=== PATIENT | male | born 1950 | race Two or more races ===

== ENCOUNTER 2022-08-03 16:02 | Outpatient (REF) | payer MEDICARE, OTHER, SELFPAY ==
--- NOTE | ~2022-08-03 | XR_ITS ---
EXAMINATION: XR CLAVICLE, RIGHT CLINICAL INFORMATION: Bony hypertrophy. COMPARISON: None TECHNIQUE: Straight AP and cephalad angulated AP views of the right clavicle. FINDINGS: Bony alignment and mineralization are normal. The glenohumeral joint is intact. The acromioclavicular and coracoclavicular intervals are normal. There is mild osteoarthritic change of the right acromioclavicular joint, with small well-corticated subarticular cysts seen of the distal left clavicle. No fracture or dislocation is seen. There is no foreign body. No right pneumothorax is seen. XR/XR clavicle RT IMPRESSION: There is mild degenerative change of the right acromioclavicular joint. No fracture or dislocation is seen.
== END 2022-08-03 16:03 | disposition home or self-care (01) ==
LOC: HO.XRAY 16:02
PROVIDERS: PCP Internal Medicine; Visit Provider Psychiatry & Neurology Neurology
DX: M89.311 Hypertrophy of bone, right shoulder (principal)
CPT/HCPCS: 73000

== ENCOUNTER 2022-08-20 11:06 | Outpatient (REF) | payer MEDICARE, OTHER, SELFPAY ==
--- NOTE | ~2022-08-20 | MR_ITS ---
EXAMINATION: MR LUMBAR SPINE WITHOUT CONTRAST CLINICAL INFORMATION: Dorsalgia, unspecified COMPARISON: None TECHNIQUE: MRI of the lumbar spine was obtained using routine sequences without contrast. FINDINGS: There is transitional lumbosacral anatomy. Last fully formed disc is considered L5-S1 as seen on series 6 image 25/34. There is a hypoplastic disc at S1-S2 seen on series 6 image 31/34. The lumbar vertebral bodies maintain their is chronic compression deformity at L3 with mild height loss but no marrow edema. Additional inferior endplate depression is seen at L4 compatible with chronic fracture. The sagittal alignment appears preserved. There is moderate degree of dextroscoliotic curvature in the lumbar spine. The distal spinal cord appears normal. The conus medullaris terminates normally at the L1 level. A small filar lipoma is noted extending inferiorly from the L3 level. The extraspinal soft tissues are within normal limits. SPINAL LEVELS: L1-L2: Mild disc bulging with ligament flavum infolding, facet arthropathy, and epidural lipomatosis resulting mild spinal canal stenosis. No neural foraminal stenosis. L2-L3: Disc bulging with central annular fissuring, ligament flavum infolding, facet arthropathy, and epidural lipomatosis resulting in moderate spinal canal stenosis and subarticular stenosis. Moderate to severe left and moderate right neural foraminal stenosis. L3-L4: Disc bulging, ligament flavum infolding, and severe facet arthropathy resulting in severe spinal canal stenosis with compression of the thecal sac and traversing nerve roots. The cauda equina nerve roots appear buckled superior to this level. Left foraminal extrusion resulting in severe left neural foraminal stenosis with significant compression of the exiting left L3 nerve root. Moderate to severe right neural foraminal stenosis with compression of the exiting right L3 nerve root. L4-L5: Bulging with central protrusion, ligamentum flavum infolding, and severe facet arthropathy resulting in severe spinal canal stenosis with compression of the thecal sac and traversing nerve roots. Left foraminal extrusion results in severe left neural foraminal stenosis with significant compression of the exiting left L4 nerve root. Severe right neural foraminal stenosis with compression of the exiting right L4 nerve root. L5-S1: Disc bulging with central protrusion and severe facet arthropathy resulting in bilateral subarticular stenosis with compression of the traversing S1 nerve roots. Severe bilateral neural foraminal stenosis with compression of both exiting L5 nerve root. S1-S2: Hypoplastic disc with severe right and moderate left facet arthropathy. No spinal canal stenosis. Transitional anatomy with osteophytic ridging appears to compress the extraforaminal right S1 nerve root. MR/MR lumbar spine wo con IMPRESSION: Transitional lumbosacral anatomy with last fully formed disc considered L5-S1 and hypoplastic disc seen at S1-S2. Please confirm all numbering prior to any interventions. Advanced degenerative spondylotic changes with severe spinal canal stenosis with compression of the thecal sac and traversing nerve roots at L3-L4 and L4-L5. Multilevel advanced neural foraminal stenosis is also demonstrated with significant compression of exiting nerve roots.
== END 2022-08-20 11:07 | disposition home or self-care (01) ==
LOC: HO.MRI 11:06
PROVIDERS: Visit Provider Psychiatry & Neurology Neurology
DX: M54.9 Dorsalgia, unspecified (principal); R20.0 Anesthesia of skin; R20.2 Paresthesia of skin
CPT/HCPCS: 72148

== ENCOUNTER 2022-10-13 14:04 | Outpatient (REF) | payer MEDICARE, OTHER, SELFPAY ==
--- NOTE | 2022-10-13 09:15 | EMG_ITS ---
Please see scanned EMG / Nerve Conduction Report. MTDD
== END 2022-10-13 14:05 | disposition home or self-care (01) ==
LOC: HO.NEURO 14:04
PROVIDERS: Visit Provider Psychiatry & Neurology Neurology
DX: R20.0 Anesthesia of skin (principal); R20.2 Paresthesia of skin
CPT/HCPCS: 95885; 95911

== ENCOUNTER → 2023-05-04 14:42 | Outpatient (BNVA) | payer MEDICARE, OTHER, SELFPAY | PROVIDERS: PCP Internal Medicine; Visit Provider Psychiatry & Neurology Neurology | DX: M48.062 Spinal stenosis, lumbar region with neurogenic claudication (principal); G62.9 Polyneuropathy, unspecified | CPT/HCPCS: 99212 ==

== ENCOUNTER 2023-07-06 11:43 | Outpatient (REF) | payer MEDICARE, OTHER, SELFPAY ==
--- NOTE | ~2023-07-06 | XR_ITS ---
EXAMINATION: XR LUMBOSACRAL SPINE CLINICAL INFORMATION: Spinal stenosis, lumbar region with neurogenic claudication COMPARISON: Lumbar spine MRI 08/25/2022 TECHNIQUE: 4 views of the lumbar spine, inclusive of flexion and extension views, were obtained. FINDINGS: There is mild curve of the lumbar spine, convex right. There is transitional lumbosacral anatomy. The last fully formed disc is considered L5-S1. There is a hypoplastic disc at S1-S2. There is chronic compression of the L3 vertebral body with mild loss of height. Additional superior and inferior endplate depression is seen at L4 consistent with chronic fracture. There is disc space narrowing at L3-L4 and L4-L5. The L5-S1 disc space is narrow. There is multilevel degenerative facet joint disease. There is loss of the usual lumbar lordosis which can be seen with muscle spasm. There is no spondylolisthesis. There is no change in alignment with flexion and extension. XR/XR lumbar spine 4V min IMPRESSION: 1. Mild curve of the lumbar spine, convex right. 2. Multilevel degenerative disc disease and degenerative facet joint disease. 3. Loss of the usual lumbar lordosis which can be seen with muscle spasm. 4. No change in alignment with flexion and extension.
== END 2023-07-06 11:44 | disposition home or self-care (01) ==
LOC: HO.HOSX 11:43
PROVIDERS: PCP Internal Medicine; Visit Provider Neurological Surgery
DX: M48.062 Spinal stenosis, lumbar region with neurogenic claudication (principal)
CPT/HCPCS: 72110; 99202

== ENCOUNTER 2023-07-06 11:43 | Outpatient (AMB) | payer MEDICARE, OTHER, SELFPAY ==
--- NOTE | 2023-07-06 12:31 | A.SPINEOV_ITS ---
Intake Intake Visit Reasons: spinal stenosis Intake Note: Mr. Swanson is here today c/o low back pain. MRI done @ [place]. Machine [employer]il [employer]er Required: No Allergies No Known Allergies Allergy (Verified 05/04/23 14:45) Assessment & Plan Assessment & Plan (1) Spinal stenosis, lumbar region with neurogenic claudication: Code(s): M48.062 - Spinal stenosis, lumbar region with neurogenic claudication Plan Dear colleague, Thank you for referring Zahra to our office today. He is a 72-year-old male with a chief complaint of low back pain radiating down his hamstrings to his posterior knee. He also endorses some numbness and tingling at the bottom of his feet. He reports that his pain is worse with activity and moving for prolonged periods of time. His pain decreases with sitting, resting, and lying down. He has tried epidural injections in the lumbar spine with success in the past. He reports no inciting incident for his pain and states it has been going on for ?years. He states that despite his pain is able to remain extremely active, playing tennis regularly, walking, and doing abdominal exercises. He recently had an EMG done (6 months ago) which showed lower extremity peripheral neuropathy. He is hopeful that he can find some kind a permanent solution for his radicular symptoms, so does not continue to interfere with his activity. PMH: High blood pressure, Hx DVT on anticoagulation (warfarin), erectile dysfunction, peripheral neuropathy, CKD, arthritis. Hx total knee replacement, prostatectomy. Social hx: Nonsmoker, uses Cannabis recreationally. No other disclosed substance use. Medications: Amlodipine, cholecalciferol, hydrochlorothiazide, metoprolol, tadalafil, warfarin. Allergies: NKDA Physical exam: 5/5 strength in lower extremities. 0/1 reflexes in bilateral lower extremities. Sensation remains grossly intact. No pain elicited with spine flexion or extension. No issues with ambulation. No clonus. (-) straight leg raise bilaterally. Imaging review: MRI from 08/19 shows severe spinal canal stenosis at L2-L4 and severe degenerative disc disease at L2/L3. EMG from September 2022 shows mild axonal peripheral neuropathy in the lower extremities. Reviewed findings with Dr. Chicas. Lumbar X-ray showed the L2-3 disc collpas with consequently the development of a deformity in this area. Impression: The patient is a 72-year-old male with a chief complaint of low back pain and radiation of his pain to his hamstrings and posterior knee. He has a medical history that is significant for peripheral neuropathy. He reports that his pain is typically manageable, but has been most recently been hurting him while playing tennis. He states that he came to our office today in the hopes of being offered some kind of permanent solution for his radicular symptoms. He spent the majority of his visit asking questions about his symptoms and imaging, inquiring of statistics and rates of continued improvement over time without surgery. After reviewing MRI and x-ray imaging with Dr. Chicas we discussed the risks vs. benefits of a lumbar fusion surgery with the patient. He did not seem agreeable to this, and would rather continue living the way he currently is until the time comes where he feels his symptoms warrant a surgical intervention. This was also Dr. Chicas suggestion at this time. He was encouraged to return to be management and inquire with his provider about the potential for facet block injections. Thank you for allowing us to care for your patient. The total time spent with this visit with this patient was 65 minutes reviewing history, physical exam, MRI / X-ray imaging review, and implementation of treatment plan or further diagnostic testing Barber Chicas MD,PhD [facility] Orders: Orders XR lumbar spine 4V min Today M48.062 - Spinal stenosis, lumbar region with neurogenic claudication Coding Level of Care Code New Pt Level 5 (59113) Diagnoses Spinal stenosis, lumbar region with neurogenic claudication M48.062
== END 2023-07-06 12:59 | disposition home or self-care (01) ==
PROVIDERS: PCP Internal Medicine; Referring Provider Psychiatry & Neurology Neurology; Visit Provider Neurological Surgery
DX: M48.062 Spinal stenosis, lumbar region with neurogenic claudication (principal)
CPT/HCPCS: 99205